=== PATIENT | male | born 1995 | race Caucasian/White ===

== ENCOUNTER 2021-04-08 09:49 | Emergency (ER) | payer SELFPAY ==
[2021-04-08 10:11] VITALS: BP 126/75; PULSE 55; TEMP 98.1; BMI 22.8
[2021-04-08 11:39] LABS: PH,URINE 5.5 (5.0-8.0); URINE APPEARANCE CLEAR; URINE BILIRUBIN NEGATIVE (NEGATIVE); URINE COLOR ORANGE; URINE GLUCOSE (UA) NEGATIVE (NEGATIVE); URINE KETONE NEGATIVE (NEGATIVE); URINE LEUK ESTERASE NEGATIVE (NEGATIVE); URINE NITRITE NEGATIVE (NEGATIVE); URINE PROTEIN NEGATIVE (NEGATIVE); URINE UROBILINOGEN 0.2 mg/dL (0.2-1.0)
== END 2021-04-08 12:38 | disposition home or self-care (01) ==
LOC: JERFT 09:49
DX: R30.0 Dysuria (principal)
CPT/HCPCS: 36415; 81003; 87086; 87491; 87591; 99284-25

== ENCOUNTER 2021-05-27 14:14 | Emergency (ER) | payer OTHER ==
[2021-05-27 14:39] VITALS: BP 131/82; PULSE 63; TEMP 98.3; BMI 26.2
[2021-05-27] MEDS ORDERED: DIPHTH,PERTUSS(ACELL),TET 0.5 ML DISP.SYRIN IM ONE ×2 (15:20→15:56)
[2021-05-27] MEDS ORDERED: DEXAMETHASONE SOD PHOSPHATE 10 MG/1 ML VIAL ONE (16:10)
== END 2021-05-27 17:23 | disposition home or self-care (01) ==
LOC: JERFT 14:14
PROC: 3E023GC Introduction of Other Therapeutic Substance into Muscle, Percutaneous Approach (ICD-10-PCS; principal; 2021-05-27)
PROC: 3E0234Z Introduction of Serum, Toxoid and Vaccine into Muscle, Percutaneous Approach (ICD-10-PCS; 2021-05-27)
DX: S61.211A Laceration without foreign body of left index finger without damage to nail, initial encounter (principal); W26.8XXA Contact with other sharp object(s), not elsewhere classified, initial encounter
CPT/HCPCS: 90715; 99284-25